=== PATIENT | male | born 1945 | race African-American/Black ===

== ENCOUNTER 2017-03-10 14:06 | Emergency (ER) | payer MEDICARE, MEDICAID ==
[~2017-03-10] VITALS: Ht 177.8 cm; Wt 74.0 kg
[~2017-03-10 14:06] MED LIST: AMIT10TA6 PO; AMLO2.5T45 PO; ASPI-1159 PO; HYDR-523 PO; LOSA50TA20 PO
[2017-03-10] MEDS ORDERED: LEVETIRACETAM 1,000 MG in SODIUM CHLORIDE 0.9% 100 ML IV ONE (14:45)
[2017-03-10 15:01] LABS: EOSINOPHILS % 1.6 % (0.0-5.0); HEMATOCRIT. 36.6 % (42.0-52.0); HEMOGLOBIN. 12.2 g/dL (14.0-18.0); LYMPHOCYTES % 43.6 % (20.0-50.0); MEAN CORPUSCULAR HEMOGLOBIN 30.6 pg (28.0-32.0); MEAN CORPUSCULAR VOLUME 91.5 fL (80.0-94.0); MEAN PLATELET VOLUME 9.3 fl (7.4-10.4); MONOCYTES % 14.7 % (2.0-8.0); NEUTROPHILS % 39.1 % (40.0-76.0); PLATELET 106 x1000/uL (130-400); RED CELL DISTRIBUTION WIDTH 12.6 % (11.6-14.6)
[2017-03-10 15:06] LABS: INR 1.2
[2017-03-10 15:17] LABS: CARBON DIOXIDE 25 mEq/L (21-32); CHLORIDE 103 mEq/L (98-107); TROPONIN I 0.03 ng/mL (0.00-0.04)
[2017-03-10 15:22] LABS: ETHANOL BLOOD 315 mg/dL
[2017-03-10 15:39] LABS: AMMONIA 48 uMol/L (<32)
[2017-03-10] MEDS: TRANEXAMIC ACID IV NR ×2 (17:00→18:30)
[2017-03-10] MEDS: SODIUM CHLORIDE 0.9% IV NR ×2 (17:00→18:30)
[2017-03-10 17:55] VITALS: BP 163/95
[2017-03-10] MEDS ORDERED: SODIUM CHLORIDE 0.9% 1,000 ML IV ONE (18:15)
== END 2017-03-10 20:55 | disposition home or self-care (01) ==
LOC: ER 14:07
DX: G40.909 Epilepsy, unspecified, not intractable, without status epilepticus (principal); M06.9 Rheumatoid arthritis, unspecified; F10.20 Alcohol dependence, uncomplicated; H49.02 Third [oculomotor] nerve palsy, left eye; D64.9 Anemia, unspecified; D72.819 Decreased white blood cell count, unspecified; D69.6 Thrombocytopenia, unspecified; E87.6 Hypokalemia; Y90.8 Blood alcohol level of 240 mg/100 ml or more; Z79.82 Long term (current) use of aspirin; Z59.0 Homelessness
CPT/HCPCS: 36415; 70450; 71010; 80053; 82140; 83880; 84484; 85025; 85610; 96365; 96366; 96367; 99291; G0482; J1953; J7030; J7050

== ENCOUNTER 2017-08-02 18:16 | Inpatient (IN) | payer MEDICARE, MEDICAID ==
[~2017-08-02] VITALS: Ht 188 cm; Wt 91.2 kg
[2017-08-02] MEDS ORDERED: SODIUM CHLORIDE 0.9% 1,000 ML IV ONE (18:30)
[2017-08-02] MEDS ORDERED: TRAMADOL 50MG TABLET PO ONE (18:45)
[2017-08-02] MEDS ORDERED: VANCOMYCIN 1 G PREMIX 200 ML IV ONE (19:00)
[2017-08-02] MEDS ORDERED: SODIUM CHLORIDE 0.9% 1000ML BAG (SEPSIS BOLUS) IV ONE (19:00)
[2017-08-02] MEDS ORDERED: PIPERACILLIN/TAZ 3.375G PREMIX 50 ML IV ONE (19:00)
[2017-08-02 19:12] LABS: BASOPHILS % 0.8 % (0.0-2.0); EOSINOPHILS % 1.3 % (0.0-5.0); HEMATOCRIT. 32.4 % (42.0-52.0); HEMOGLOBIN. 10.6 g/dL (14.0-18.0); MEAN CORPUSCULAR VOLUME 88.3 fL (80.0-94.0); MEAN PLATELET VOLUME 9.2 fl (7.4-10.4); MONOCYTES % 10.4 % (2.0-8.0); NEUTROPHILS % 57.5 % (40.0-76.0); PLATELET 102 x1000/uL (130-400); RED BLOOD CELL COUNT 3.67 mill/uL (4.7-6.1); RED CELL DISTRIBUTION WIDTH 14.6 % (11.6-14.6)
[2017-08-02 19:18] LABS: CHLORIDE 107 mEq/L (98-107); INR 1.2; PROTHROMBIN TIME 12.4 sec (9.4-11.6)
[2017-08-02 19:25] LABS: CREATINE KINASE MB FRACTION 8.8 ng/mL (0.5-3.6); PHENOBARBITAL < 2.1 ug/mL (15.0-40.0)
[2017-08-02 19:27] LABS: CARBAMAZEPINE < 0.5 ug/mL (4-12); VALPROIC ACID < 3.0 ug/mL (50-100)
[2017-08-02 20:11] LABS: CLARITY URINE CLEAR (CLEAR); COLOR URINE YELLOW (YELLOW); KETONES URINE NEGATIVE (NEGATIVE); LEUKOCYTE ESTERASE URINE NEGATIVE (NEGATIVE); NITRITE URINE NEGATIVE (NEGATIVE); OCCULT BLOOD URINE 2+ (NEGATIVE); PH URINE 6.5 (4.5-8.0); PROTEIN URINE TRACE (NEGATIVE)
[2017-08-02 20:24] LABS: *AMPHETAMINES SCREEN URINE NEGATIVE (NEGATIVE); *BARBITURATES SCREEN URINE NEGATIVE (NEGATIVE); *BENZODIAZEPINES SCREEN URINE NEGATIVE (NEGATIVE); *COCAINE SCREEN URINE NEGATIVE (NEGATIVE); METHADONE URINE SCREEN NEGATIVE (NEGATIVE); OPIATES URINE SCREEN NEGATIVE (NEGATIVE)
[2017-08-02 20:25] LABS: CANNABINOID URINE SCREEN NEGATIVE (NEGATIVE); PHENCYCLIDINE URINE SCREEN NEGATIVE (NEGATIVE)
[2017-08-02] MEDS ORDERED: DOCUSATE SODIUM 100MG CAPSULE PO PRN (21:30)
[2017-08-02] MEDS ORDERED: MAGNESIUM/ALUMINUM HYDROXIDE/SIMETHICONE 30ML UDC PO PRN (21:30)
[2017-08-02] MEDS ORDERED: ONDANSETRON HCL 4MG/2ML VIAL IV PRN (21:30)
[2017-08-02] MEDS ORDERED: DIPHENHYDRAMINE 50MG/ML VIAL IV PRN (21:30)
[2017-08-02] MEDS ORDERED: NITROGLYCERIN 0.4MG TABLET SL SL PRN (21:30)
[2017-08-02] MEDS ORDERED: CLONIDINE 0.1MG TABLET PO PRN (21:30)
[2017-08-02] MEDS ORDERED: LORAZEPAM 0.5MG TABLET PO PRN (21:30)
[2017-08-02] MEDS ORDERED: IPRATROPIUM/ALBUTEROL 0.5-3(2.5)MG/3ML NEB INH PRN (21:30)
[2017-08-02] MEDS ORDERED: KETOROLAC 15MG/ML VIAL IV PRN (21:30)
[2017-08-02] MEDS ORDERED: NA PHOS,M-B/NA PHOS,DI-BA ENEMA 118ML PR PRN (21:30)
[2017-08-02] MEDS ORDERED: ZOLPIDEM TARTRATE 5MG TABLET PO PRN (21:30)
[2017-08-02] MEDS ORDERED: ACETAMINOPHEN 325MG TABLET PO PRN (21:30)
[2017-08-02] MEDS ORDERED: GUAIFENESIN 200MG/10ML SUGAR FREE UDC PO PRN (21:30)
[2017-08-02] MEDS ORDERED: ONDANSETRON HCL 4MG/2ML VIAL IV STA (21:33)
[2017-08-02] MEDS ORDERED: MORPHINE SULFATE 4 MG/ML CPJ (NOT FOR IM USE) IV STA (21:33)
[2017-08-02 22:30] LABS: CREATINE KINASE 392 IU/L (39-308); CREATINE KINASE MB FRACTION 9.1 ng/mL (0.5-3.6)
[2017-08-02 22:51] LABS: FOLIC ACID (FOLATE) SERUM 11.4 ng/mL (>5.38)
[2017-08-03] VITALS (8 sets, daily range): BP systolic 137–185; BP diastolic 67–87
[2017-08-03] MEDS ORDERED: MVI, ADULT NO.1 10 ML, FOLIC ACID 1 MG, THIAMINE HCL 100 MG in SODIUM CHLORIDE 0.9% 1,0... IV SCH ×4 (04:00)
[2017-08-03] MEDS: TRAMADOL 50MG TABLET PO PRN ×3 (04:11→21:22)
[2017-08-03] MEDS: PIPERACILLIN/TAZ 3.375G PREMIX 50 ML IV SCH ×3 (05:35→21:06)
[2017-08-03] MEDS: VANCOMYCIN 1250MG in DEXTROSE 5% WATER 250ML IV SCH ×2 (05:59→23:30)
[2017-08-03 07:28] LABS: CREATINE KINASE MB FRACTION 8.5 ng/mL (0.5-3.6)
[2017-08-03] MEDS: ASPIRIN 325MG EC TABLET PO SCH (08:51)
[2017-08-03] MEDS: METOPROLOL TARTRATE 25MG TABLET PO SCH ×2 (08:51→20:24)
[2017-08-03] MEDS: ENOXAPARIN 40MG/0.4ML SYR SUBCUT SCH (08:56)
[2017-08-03] MEDS: ZINC SULFATE 220 MG ( 50 ) CAPSULE PO SCH (09:02)
[2017-08-03] MEDS: FAMOTIDINE 20MG/2ML VIAL IV SCH ×2 (09:31→20:24)
[2017-08-03] MEDS ORDERED: VANCOMYCIN 1 G PREMIX 200 ML IV SCH (10:00)
[2017-08-03] MEDS ORDERED: OMEP20CA10 PO (11:40)
[2017-08-03] MEDS ORDERED: TAMS-11 PO (11:40)
[2017-08-04 00:19] VITALS: BP 153/60
[2017-08-04 04:00] VITALS: BP 163/77
[2017-08-04] MEDS: TRAMADOL 50MG TABLET PO PRN ×2 (05:01→12:59)
[2017-08-04] MEDS: PIPERACILLIN/TAZ 3.375G PREMIX 50 ML IV SCH ×2 (05:38→13:33)
[2017-08-04 08:00] VITALS: BP 161/80
[2017-08-04 08:08] LABS: BASOPHILS % 1.4 % (0.0-2.0); EOSINOPHILS % 2.8 % (0.0-5.0); HEMATOCRIT. 32.1 % (42.0-52.0); HEMOGLOBIN. 10.6 g/dL (14.0-18.0); LYMPHOCYTES % 24.4 % (20.0-50.0); MEAN CORPUSCULAR HEMOGLOBIN 28.8 pg (28.0-32.0); MEAN CORPUSCULAR VOLUME 87.3 fL (80.0-94.0); MEAN PLATELET VOLUME 10.5 fl (7.4-10.4); NEUTROPHILS % 60.4 % (40.0-76.0); PLATELET 89 x1000/uL (130-400); RED BLOOD CELL COUNT 3.68 mill/uL (4.7-6.1)
[2017-08-04] MEDS: ZINC SULFATE 220 MG ( 50 ) CAPSULE PO SCH (08:38)
[2017-08-04] MEDS: METOPROLOL TARTRATE 25MG TABLET PO SCH (08:38)
[2017-08-04] MEDS: ASPIRIN 325MG EC TABLET PO SCH (08:38)
[2017-08-04] MEDS: ENOXAPARIN 40MG/0.4ML SYR SUBCUT SCH (08:39)
[2017-08-04] MEDS: FAMOTIDINE 20MG/2ML VIAL IV SCH (08:46)
[2017-08-04 08:48] LABS: CHLORIDE 98 mEq/L (98-107)
[2017-08-04 12:00] VITALS: BP 105/43
[2017-08-04 12:59] VITALS: BP 105/43
== END 2017-08-04 14:30 | disposition left against medical advice (07) | DRG 720 ==
LOC: ER 19:17 → 7WST 20:48 → ENRESERV 22:48
PROVIDERS: ADMIT Internal Medicine; ATTEND Internal Medicine
DX: A41.9 Sepsis, unspecified organism (principal); N17.0 Acute kidney failure with tubular necrosis; E43 Unspecified severe protein-calorie malnutrition; G40.909 Epilepsy, unspecified, not intractable, without status epilepticus; D63.8 Anemia in other chronic diseases classified elsewhere; L97.829 Non-pressure chronic ulcer of other part of left lower leg with unspecified severity; E86.0 Dehydration; I10 Essential (primary) hypertension; I73.9 Peripheral vascular disease, unspecified; F10.120 Alcohol abuse with intoxication, uncomplicated; R74.0 Nonspecific elevation of levels of transaminase and lactic acid dehydrogenase [LDH]; Z86.73 Personal history of transient ischemic attack (TIA), and cerebral infarction without residual deficits; Z91.81 History of falling; Z79.899 Other long term (current) drug therapy; Z79.82 Long term (current) use of aspirin; S81.002A Unspecified open wound, left knee, initial encounter; B95.62 Methicillin resistant Staphylococcus aureus infection as the cause of diseases classified elsewhere
CPT/HCPCS: 36415; 71045; 73562; 80048; 80053; 80061; 80156; 80165; 80184; 80185; 80202; 80305; 81003; 82550; 82553; 82607; 82746; 83036; 83540; 83550; 83605; 84484; 85025; 85610; 85730; 87040; 87086; 93005; 93970; 96365; 96375; 99291; G0482; J1650; J2270; J2405; J2543; J3370; J3411; J3490; J7030; J7060

== ENCOUNTER 2017-08-06 17:14 | Emergency (ER) | payer MEDICARE, MEDICAID ==
[~2017-08-06 17:14] MED LIST changes: +OMEP20CA10 PO; +TAMS-11 PO
== END 2017-08-06 19:07 | disposition left against medical advice (07) ==
LOC: ER 18:53
DX: Z53.21 Procedure and treatment not carried out due to patient leaving prior to being seen by health care provider (principal); I10 Essential (primary) hypertension; Z86.73 Personal history of transient ischemic attack (TIA), and cerebral infarction without residual deficits

== ENCOUNTER → 2017-12-24 | Outpatient (CLI) | payer MEDICARE, MEDICAID | END | disposition home or self-care (01) | LOC: RAD 13:33 | PROVIDERS: ATTEND Internal Medicine | DX: M16.12 Unilateral primary osteoarthritis, left hip (principal); M25.852 Other specified joint disorders, left hip; I10 Essential (primary) hypertension | CPT/HCPCS: 73502 ==